=== PATIENT | male | born 1995 | race Two or more races ===

== ENCOUNTER 2020-06-25 11:15 | Emergency (ER) | payer OTHER ==
[~2020-06-25] VITALS: Ht 162.6 cm; Wt 93.0 kg
[~2020-06-25 11:15] MED LIST: GILTUSS LIQUID237 M1; LEVSIN0.125 MG PO; POLY119PG PO; PROTONIX40 MG PO; ULTRACET PO; ZANTAC300 MG PO; ZOFRAN4 MG PO
[2020-06-25] MEDS ORDERED: LEVSIN/SL0.125 MG SL (17:47)
== END 2020-06-25 18:00 | disposition home or self-care (01) ==
LOC: ER 11:15
DX: R10.84 Generalized abdominal pain (principal); Z03.818 Encounter for observation for suspected exposure to other biological agents ruled out; R19.7 Diarrhea, unspecified; R11.0 Nausea